=== PATIENT | male | born 1970 | race Caucasian/White ===

== ENCOUNTER 2016-10-20 11:19 | Day surgery (SDC) | payer OTHER ==
[~2016-10-20] VITALS: Ht 172.7 cm; Wt 113.4 kg
[~2016-10-20 11:19] MED LIST: CLON0.5T PO; GABA600T PO; METO-346 PO; MORP15TA2 PO; OPAN5TAB PO; TIZA4CAP3 PO; VENL100T PO; VENL150C43 PO
[2016-10-20] MEDS ORDERED: LR 1,000 ML IV SCH ×2 (11:30→19:30)
[2016-10-20] MEDS ORDERED: dexameTHASONE 4 MG/ML 1ML VIAL (J1100) IV ONE (12:00)
[2016-10-20] MEDS ORDERED: CEFUROXIME SODIUM 1.5 GM in D5W MINI-BAG PLUS 50 ML IV ONE (12:00)
[2016-10-20] MEDS ORDERED: BACITRACIN PWD 50,000 UNITS VIAL As Ordered ONE (12:56)
[2016-10-20] MEDS ORDERED: THROMBIN SOLN 20,000 UNITS KIT As Ordered ONE (12:56)
[2016-10-20] MEDS ORDERED: LIDOCAINE 2% INJ 100 MG/5 ML SDV (FOR ANES.) As Ordered ONE (13:16)
[2016-10-20] MEDS ORDERED: ONDANSETRON 4MG/2ML VIAL (J2405) As Ordered ONE (13:16)
[2016-10-20] MEDS ORDERED: ROCURONIUM BROMIDE 50 MG/5 ML VIAL As Ordered ONE ×3 (13:16→15:45)
[2016-10-20] MEDS ORDERED: PROPOFOL 200 MG/20 ML VIAL As Ordered ONE ×3 (13:16→17:56)
[2016-10-20] MEDS ORDERED: fentaNYL 100 MCG/2 ML INJECTION (J3010) As Ordered ONE ×6 (13:16→19:41)
[2016-10-20] MEDS ORDERED: MIDAZOLAM INJ 2 MG/2 ML VIAL (J2250) As Ordered ONE (13:16)
[2016-10-20] MEDS ORDERED: dexameTHASONE 4 MG/ML 1ML VIAL (J1100) As Ordered ONE (13:16)
[2016-10-20] MEDS ORDERED: GLYCOPYRROLATE INJ 0.2 MG/ML 2 ML VIAL As Ordered ONE (16:03)
[2016-10-20] MEDS ORDERED: NEOSTIGMINE 1MG/ML 5 ML SYRINGE (J2710) As Ordered ONE (16:03)
--- NOTE | 2016-10-20 18:46 | REP ---
Partial thoracic spine series: Single view: History: Dorsal column stimulator insertion. 1 minute 41 seconds of fluoroscopy time is reported. Findings: A single fluoroscopically obtained intraprocedural spot radiograph of the thoracic spine documents dorsal column stimulator leads in place. Signed by Star Huddleston MD 10/20/2016 07:22 P
[2016-10-20] MEDS ORDERED: PERCOCET 5MG/325MG TAB As Ordered ONE (19:19)
[2016-10-20] MEDS: PERCOCET 5MG/325MG TAB PO PRN ×2 (19:25→19:55)
[2016-10-20] MEDS ORDERED: METOCLOPRAMIDE INJ 10MG/2ML VIAL (J2765) IV PRN (19:30)
[2016-10-20] MEDS ORDERED: ACETAMINOPHEN TAB 650MG DOSE (2X325MG) PO PRN (19:30)
[2016-10-20] MEDS ORDERED: KETOROLAC 30 MG/ML VIAL (J1885) IV PRN (19:30)
[2016-10-20] MEDS: KCL 20MEQ IN D5/0.45NS 1000ML 1,000 ML IV SCH (19:30)
[2016-10-20] MEDS ORDERED: NORCO, ANEXSIA 5/325MG TABLET (HYDROcodone/ACETAMINOPHEN) PO PRN (19:30)
[2016-10-20] MEDS ORDERED: ONDANSETRON 4MG/2ML VIAL (J2405) IV PRN ×2 (19:30)
[2016-10-20] MEDS: fentaNYL 100 MCG/2 ML INJECTION (J3010) IV PRN ×2 (19:46→19:55)
[2016-10-20] MEDS: CEFUROXIME SODIUM 750 MG in D5W MINI-BAG PLUS 50 ML IV SCH (20:00)
[2016-10-20 20:30] VITALS: BP 113/73
[2016-10-20 21:00] VITALS: BP 116/64
[2016-10-20] MEDS: GABAPENTIN 300 MG CAP PO SCH (21:53)
[2016-10-20] MEDS: CARISOPRODOL 350 MG TAB PO SCH (21:54)
[2016-10-20] MEDS: clonazePAM 0.5 MG TAB PO SCH (21:54)
[2016-10-20] MEDS: NORCO, ANEXSIA 5/325MG TABLET (HYDROcodone/ACETAMINOPHEN) PO PRN (21:54)
[2016-10-20 22:00] VITALS: BP 124/70
[2016-10-20 23:00] VITALS: BP 131/76
[2016-10-21] VITALS: BP 144/89
[2016-10-21] MEDS: MORPHINE 4 MG/ML 1ML SYRINGE IV PRN ×2 (03:06→08:04)
[2016-10-21] MEDS: CEFUROXIME SODIUM 750 MG in D5W MINI-BAG PLUS 50 ML IV SCH (03:41)
[2016-10-21 04:00] VITALS: BP 135/78
[2016-10-21] MEDS: KCL 20MEQ IN D5/0.45NS 1000ML 1,000 ML IV SCH (04:39)
[2016-10-21] MEDS: NORCO, ANEXSIA 5/325MG TABLET (HYDROcodone/ACETAMINOPHEN) PO PRN (04:41)
[2016-10-21 08:00] VITALS: BP 128/80
[2016-10-21] MEDS: CARISOPRODOL 350 MG TAB PO SCH (08:07)
[2016-10-21] MEDS: clonazePAM 0.5 MG TAB PO SCH (08:07)
[2016-10-21] MEDS: GABAPENTIN 300 MG CAP PO SCH (08:08)
[2016-10-21 08:14] VITALS: BP 135/78
[2016-10-21] MEDS ORDERED: METOPROLOL TART 25 MG TABLET PO SCH (09:00)
[2016-10-21] MEDS ORDERED: VENLAFAXINE **XR** 75MG CAPSULE PO SCH (09:00)
[2016-10-21 09:57] VITALS: BP 128/80
[2016-10-21] MEDS ORDERED: SOMA350T PO (10:25)
[2016-10-21] MEDS ORDERED: KEFL500C7 AD (10:27)
--- NOTE | 2016-10-21 11:50 | IPN ---
DATE: 10/21/2016 SUBJECTIVE: Mr. Irizarry is day #1 status post placement of permanent dorsal column stimulator. He had a T8-9 laminectomy and placement of a permanent paddle lead dorsal column stimulator and placement of battery pulse generator in his right lower back. Overall he states he is doing very well. He is standing and ambulating without any problems or concerns. He states that he has soreness at the incision sites but no other problems. The stimulator novelties sales representative has given him several programs today and he states that they are working excellent. He states that he is very happy and pleased with his surgical outcome. He denies any headache, no chest pain. No shortness of breath. No abdominal pain. No dizziness or vertigo. On exam, no acute distress. Well-developed, well-nourished, obese gentleman. He has excellent strength in his bilateral quadriceps, hamstrings, gastrocs, anterior tibialis, iliopsoas are strong at 5/5. Gait and balance normal. Both incisions are clean, dry, no erythema, no discharge, no signs of infection. ASSESSMENT/PLAN: Chronic low back pain post laminectomy syndrome status post placement of permanent dorsal column stimulator. The patient will be discharged home. Followup in office in 2 weeks. DISCHARGE MEDICATIONS: Soma and Keflex given. He will resume his home medications.
--- NOTE | 2016-11-12 08:08 | RO ---
DATE OF PROCEDURE: 10/20/2016 PREPROCEDURE DIAGNOSIS: Back and leg pain. POSTPROCEDURE DIAGNOSIS: Back and leg pain. PROCEDURE: Placement of thoracic epidural spinal column stimulator. SURGEON: Dr. Teofilo Lewis. TERRITORY SALES MANAGER: Vic. ANESTHESIA: General endotracheal. ESTIMATED BLOOD LOSS: After satisfactory general anesthesia was established, patient positioned prone on the operating table for the bilongitudinal. The thoracolumbar area thoroughly prepped and draped in a sterile fashion. Attention directed to the right lower flank region where an 8 cm transverse incision was made above the posterior iliac crest. Incision carried down sharply into subcutaneous fat and a pocket created for the pulse generator confirming appropriate size with the template. This was then packed with sponges and attention directed to the low thoracic region which had been previously marked using fluoroscopy and a 5 cm midline incision made down to the level of the fascia. Self retraining retractor inserted. Then the fascia incised along the spinous processes bilaterally and the muscles dissected laterally and a self retaining retractor placed. The probe was placed under the visualized lamina and the position confirmed with fluoroscopy. The ligamentum flavum was mobilized on the under surface of the inferior T9 and superior T10 lamina and then a double action rongeur used to remove the small portion of the inferior and superior aspects of the neighboring spinous processes and 3 and 4 mm Kerrison used to complete a small midline laminectomy. The plastic epidural dissector then advanced superiorly over the dorsal dura beneath the bone without resistance. The paddle electrode was then advanced over the dura and adjusted until proper position in the midline was achieved. Position confirmed with the prior trial electrode placement and then the electrode wires were anchored to the T10 spinous process using #2-0 silk suture and the electrode wire collars. The tunneler was then passed from the thoracic wound to the pulse generator pocket and the four electrode wires passed to the lateral aspect of the pocket. The pulse generator was connected and placed into the wound and then the impedances were checked and found to be satisfactory. AP and lateral views of the paddle electrode were obtained confirming proper level and confirming satisfactory position of the electrode in contact with the dura at all points. Wounds were copiously irrigated with antibiotic solution and meticulous hemostasis obtained. The flank incision was closed with #0 Vicryl for the subcutaneous closure and skin approximated with Dermabond. The thoracic incision closed using #0 Vicryl for the muscle and fascia closure. #0 Vicryl used for subcutaneous closure and skin edges approximated with Dermabond. Patient then taken to the recovery room in satisfactory condition where he was moving both lower extremities with good strength to command, having tolerated the procedure well.
== END 2016-10-21 11:05 | disposition home or self-care (01) ==
LOC: M SDC 11:19 → M PED 20:38 → M SDC 10-21 11:05
PROVIDERS: ATTEND Neurological Surgery
DX: M54.5 Low back pain (principal); M47.896 Other spondylosis, lumbar region; M96.1 Postlaminectomy syndrome, not elsewhere classified; F41.9 Anxiety disorder, unspecified; I10 Essential (primary) hypertension; F32.9 Major depressive disorder, single episode, unspecified; Z79.899 Other long term (current) drug therapy; Z87.891 Personal history of nicotine dependence
CPT/HCPCS: 63655; 63685; 72110; 96374; 96375; 96376; C1778; C1787; C1820; J0697; J1100; J2250; J2405; J2710; J3010